=== PATIENT | female | born 1945 | race Two or more races ===

== ENCOUNTER 2021-12-26 22:25 | Inpatient (IN) | payer OTHER ==
[~2021-12-26] VITALS: Ht 154.9 cm; Wt 61.2 kg
[2021-12-26] MEDS ORDERED: PLAVIX (22:40)
[2021-12-26] MEDS ORDERED: METFORMIN (22:40)
[2021-12-26] MEDS ORDERED: LOSARTAN (22:40)
[2021-12-26] MEDS ORDERED: ATORVASTATIN (22:41)
[2021-12-27] MEDS ORDERED: GABAPENTIN400 MG (16:27)
[2021-12-27] MEDS ORDERED: ATORVASTATIN CA80 MG (16:27)
[2021-12-27] MEDS ORDERED: CLOPIDOGREL BIS75 MG (16:27)
[2021-12-27] MEDS ORDERED: METFORMIN HCL750 MG (16:27)
[2021-12-27] MEDS ORDERED: LOSARTAN POTASS25 MG (16:27)
[2021-12-27] MEDS ORDERED: CARBAMAZEPINE200 MG (16:27)
[2021-12-27] MEDS ORDERED: NIFEDIPINE ER30 M1 (16:28)
[2021-12-27] MEDS ORDERED: PANTOPRAZOLE SO40 MG (16:28)
[2021-12-31] MEDS ORDERED: LEVSIN/SL0.125 MG SL (16:48)
[2021-12-31] MEDS ORDERED: AMOX-CLAV 875-1 EACH PO (16:48)
== END 2021-12-31 17:47 | disposition home or self-care (01) | DRG 395 ==
LOC: ER 22:25 → SURH 12-27 11:03
PROVIDERS: ADMIT Surgery; ATTEND Surgery
PROC: BW2110Z Computerized Tomography (CT Scan) of Abdomen and Pelvis using Low Osmolar Contrast, Unenhanced and Enhanced (ICD-10-PCS; principal; 2021-12-26)
PROC: BW21ZZZ Computerized Tomography (CT Scan) of Abdomen and Pelvis (ICD-10-PCS; 2021-12-31)
DX: K66.8 Other specified disorders of peritoneum (principal); Z93.2 Ileostomy status; N18.9 Chronic kidney disease, unspecified; I25.10 Atherosclerotic heart disease of native coronary artery without angina pectoris; K57.30 Diverticulosis of large intestine without perforation or abscess without bleeding

== ENCOUNTER 2022-01-04 11:23 | Inpatient (IN) | payer OTHER ==
[~2022-01-04] VITALS: Ht 154.9 cm; Wt 56.7 kg
[~2022-01-04 11:23] MED LIST: AMOX-CLAV 875-1 EACH PO; ATORVASTATIN; ATORVASTATIN CA80 MG; CARBAMAZEPINE200 MG; CLOPIDOGREL BIS75 MG; GABAPENTIN400 MG; LEVSIN/SL0.125 MG SL; LOSARTAN; LOSARTAN POTASS25 MG; METFORMIN; METFORMIN HCL750 MG; NIFEDIPINE ER30 M1; PANTOPRAZOLE SO40 MG; PLAVIX
[2022-01-04] MEDS ORDERED: ECOTRIN81 MG (12:38)
[2022-01-04] MEDS ORDERED: HYDRODIURIL12.5 MG (12:38)
--- NOTE | 2022-01-04 12:43 | NUR ---
PTE ALERTA Y ORIENTADA EN ROLANDA JUHI ESFERAS, REFIERE DOLOR ABDOMINAL QUE LE COMENZO JULIO Y EDEMA EN AMBAS PIERNAS. PTE REFIERE FUE SIENA DE BLANCA POR EL DR ZEESHAN VASQUEZ HACE 4 GUTIERRES APROXIMADAMENTE. SE UBICA EN AREA DE OBSERVACION.
--- NOTE | 2022-01-04 15:30 | NUR ---
PACIENTE EVALUADO POR DR ETIENNE BYRNEIEN [place] [facility], SE ORIENTA A PACIENTE SOBRE EL MISMO Y REFIERE ENTENDER. PENDIENTE ESTUDIO.
--- NOTE | 2022-01-04 17:04 | NUR ---
PACIENTE REVALUADA POR EL DR. CLIFTON QUEIN [place] [facility]. SE ORIENTA A PACIENTE Y FAMILIAR SOBRE EL MISMO REFIEREN ENETENDER Y SE LE ENTREGAN CONTRATES ORALES A PACIENTE PARA REALIZACION DE ESTUDIO DE CT ABDOMIBAL Y PELVICO.
--- NOTE | 2022-01-04 23:00 | NUR ---
SE RECIBE PACIENTE FEMENINA ALERTA Y ORIENTADA X3, EN [place] #10 CON BARRANDAS ELEVADAS. PENDIENTE A LECTURA DEL CT. SE LE SHARIF EN TODO MOMENTO PRIVACIDAD Y SEGURIDAD.
--- NOTE | 2022-01-05 06:52 | NUR ---
SE RECIBE PACIENTE FEMINA DE 76 ANOS DE EDAD UBICADA EN AREA DE OBSERVACION EN [place] CON BARANDAS ELAVDAS. PACIENTE EN ESPERA DE CONSULTA CON DR. AGUIRRE.
[2022-01-07] MEDS ORDERED: CARBAMAZEPINE200 MG (11:18)
== END 2022-01-17 23:23 | disposition expired | DRG 329 ==
LOC: ER 11:23 → SURH 01-05 13:44 → SURG 01-05 13:44 → SURH 01-08 13:18 → ICU 01-17 21:05 → SURH 01-18 08:07 → ICU 01-18 08:07
PROVIDERS: ADMIT Surgery; ATTEND Surgery
PROC: 0DBB0ZZ Excision of Ileum, Open Approach (ICD-10-PCS; 2022-01-17)
PROC: 0WQF0ZZ Repair Abdominal Wall, Open Approach (ICD-10-PCS; 2022-01-17)
PROC: 0UB10ZZ Excision of Left Ovary, Open Approach (ICD-10-PCS; 2022-01-17)
PROC: 0DQ80ZZ Repair Small Intestine, Open Approach (ICD-10-PCS; 2022-01-17)
PROC: 0D1B0Z4 Bypass Ileum to Cutaneous, Open Approach (ICD-10-PCS; 2022-01-17)
PROC: 0W9G0ZZ Drainage of Peritoneal Cavity, Open Approach (ICD-10-PCS; 2022-01-17)
PROC: 0DTG0ZZ Resection of Left Large Intestine, Open Approach (ICD-10-PCS; principal; 2022-01-17 14:45)
DX: K55.041 Focal (segmental) acute infarction of large intestine (principal); K65.1 Peritoneal abscess; K57.20 Diverticulitis of large intestine with perforation and abscess without bleeding; K94.09 Other complications of colostomy; K59.39 Other megacolon; K56.699 Other intestinal obstruction unspecified as to partial versus complete obstruction; I13.0 Hypertensive heart and chronic kidney disease with heart failure and stage 1 through stage 4 chronic kidney disease, or unspecified chronic kidney disease; N18.9 Chronic kidney disease, unspecified; K43.5 Parastomal hernia without obstruction or gangrene; N83.202 Unspecified ovarian cyst, left side; N99.4 Postprocedural pelvic peritoneal adhesions; N73.6 Female pelvic peritoneal adhesions (postinfective); I95.81 Postprocedural hypotension; D63.1 Anemia in chronic kidney disease; D53.0 Protein deficiency anemia; D50.0 Iron deficiency anemia secondary to blood loss (chronic); E87.8 Other disorders of electrolyte and fluid balance, not elsewhere classified; M62.59 Muscle wasting and atrophy, not elsewhere classified, multiple sites; R53.81 Other malaise; I25.10 Atherosclerotic heart disease of native coronary artery without angina pectoris; E11.21 Type 2 diabetes mellitus with diabetic nephropathy; Z95.1 Presence of aortocoronary bypass graft